=== PATIENT | female | born 1980 | race Caucasian/White ===

== ENCOUNTER 2018-03-27 12:24 | Emergency (ER) | payer BC ==
[2018-03-27] MEDS ORDERED: Ibuprofen 800 MG TAB ONE (13:51)
[2018-03-27] MEDS ORDERED: Acetaminophen 500 MG TAB ONE (13:51)
--- NOTE | 2018-03-27 15:27 | RAD ---
LEFT ANKLE 3 VIEWS: Date: 03/27/18 HISTORY: Pain. COMPARISON: None. FINDINGS: No fracture or malalignment. No joint effusion. IMPRESSION: Unremarkable 3 views left ankle. POS: [id number]
== END 2018-03-27 14:04 | disposition home or self-care (01) ==
LOC: MADERS 12:24
DX: S86.012A Strain of left Achilles tendon, initial encounter (principal); G50.0 Trigeminal neuralgia; F17.210 Nicotine dependence, cigarettes, uncomplicated; Z85.41 Personal history of malignant neoplasm of cervix uteri; W01.0XXA Fall on same level from slipping, tripping and stumbling without subsequent striking against object, initial encounter

== ENCOUNTER 2018-09-25 18:07 | Emergency (ER) | payer BC ==
[2018-09-25] MEDS ORDERED: Cephalexin 500 MG CAP ONE (18:52)
[2018-09-25] MEDS ORDERED: Ketorolac Tromethamine 30 MG/ML VIAL ONE (18:52)
[2018-09-25] MEDS ORDERED: Ondansetron ODT 4 MG TAB ONE (18:52)
[2018-09-25] MEDS ORDERED: Lorazepam 1 MG TAB ONE (19:34)
[2018-09-25] MEDS ORDERED: Acetaminophen 500 MG TAB ONE (20:08)
[2018-09-25] MEDS ORDERED: Loratadine 10 MG TAB ONE (20:12)
== END 2018-09-25 20:50 | disposition home or self-care (01) ==
LOC: MADERS 18:07
DX: H66.91 Otitis media, unspecified, right ear (principal); G50.0 Trigeminal neuralgia; F17.210 Nicotine dependence, cigarettes, uncomplicated
CPT/HCPCS: 93005; 96372; J1885; Q0162

== ENCOUNTER 2022-01-01 18:50 | Emergency (ER) | payer BC, SELFPAY ==
[2022-01-01] MEDS ORDERED: Ibuprofen 800 MG TAB ONE (19:47)
[2022-01-01] MEDS ORDERED: Acetaminophen 500 MG TAB ONE (19:47)
== END 2022-01-01 19:52 | disposition home or self-care (01) ==
LOC: MADERS 18:50
DX: S90.32XA Contusion of left foot, initial encounter (principal); W20.8XXA Other cause of strike by thrown, projected or falling object, initial encounter; F17.210 Nicotine dependence, cigarettes, uncomplicated

== ENCOUNTER 2024-05-28 08:28 | Emergency (ER) | payer OTHER, SELFPAY ==
[2024-05-28] MEDS ORDERED: carBAMazepine 200 MG TAB ONE (08:58)
[2024-05-28] MEDS ORDERED: Ketorolac Tromethamine 30 MG (1 mL) VIAL ONE (09:00)
== END 2024-05-28 09:25 | disposition home or self-care (01) ==
LOC: MADERS 08:28
DX: G50.0 Trigeminal neuralgia (principal); F17.210 Nicotine dependence, cigarettes, uncomplicated
CPT/HCPCS: 96372; 99282; J1885

== ENCOUNTER 2024-07-24 08:59 | Emergency (ER) | payer OTHER ==
[2024-07-24] MEDS ORDERED: Ibuprofen 600 MG TAB ONE (10:21)
== END 2024-07-24 10:33 | disposition home or self-care (01) ==
LOC: MADERS 08:59
DX: S60.221A Contusion of right hand, initial encounter (principal); S60.211A Contusion of right wrist, initial encounter; Z87.891 Personal history of nicotine dependence; W01.0XXA Fall on same level from slipping, tripping and stumbling without subsequent striking against object, initial encounter
CPT/HCPCS: 99283